=== PATIENT | male | born 1995 | race Two or more races ===

== ENCOUNTER 2021-07-16 10:51 | Outpatient (CLI) | payer OTHER | END 2021-07-16 11:20 | disposition home or self-care (01) | LOC: RAD 10:51 | PROVIDERS: ATTEND Physical Medicine & Rehabilitation | DX: J45.909 Unspecified asthma, uncomplicated (principal); M54.50 Low back pain, unspecified; M54.16 Radiculopathy, lumbar region; M25.552 Pain in left hip | CPT/HCPCS: 72148 ==